=== PATIENT | female | born 1950 ===

== ENCOUNTER 2018-05-04 11:22 | Outpatient (CLI) | payer OTHER ==
[~2018-05-04] VITALS: Ht 152.4 cm; Wt 54.4 kg
== END 2018-05-04 14:28 | disposition home or self-care (01) ==
LOC: OFIC 805 11:22
DX: H90.6 Mixed conductive and sensorineural hearing loss, bilateral (principal); H72.13 Attic perforation of tympanic membrane, bilateral; J31.0 Chronic rhinitis; H69.83 Other specified disorders of Eustachian tube, bilateral

== ENCOUNTER 2018-08-17 10:16 | Outpatient (CLI) | payer OTHER ==
[~2018-08-17] VITALS: Ht 152.4 cm; Wt 54.4 kg
== END 2018-08-17 10:30 | disposition home or self-care (01) ==
LOC: OFIC 805 10:16
DX: H90.6 Mixed conductive and sensorineural hearing loss, bilateral (principal); H72.10 Attic perforation of tympanic membrane, unspecified ear; J31.0 Chronic rhinitis; H69.83 Other specified disorders of Eustachian tube, bilateral

== ENCOUNTER 2019-03-08 11:42 | Outpatient (CLI) | payer OTHER ==
[~2019-03-08] VITALS: Ht 152.4 cm; Wt 54.4 kg
== END 2019-03-08 15:21 | disposition home or self-care (01) ==
LOC: OFIC 805 11:42
DX: H90.6 Mixed conductive and sensorineural hearing loss, bilateral (principal); H72.13 Attic perforation of tympanic membrane, bilateral; J31.0 Chronic rhinitis; H69.83 Other specified disorders of Eustachian tube, bilateral

== ENCOUNTER 2019-05-10 11:10 | Outpatient (CLI) | payer OTHER ==
[~2019-05-10] VITALS: Ht 152.4 cm; Wt 54.4 kg
== END 2019-05-10 12:25 | disposition home or self-care (01) ==
LOC: OFIC 805 11:10
DX: H90.6 Mixed conductive and sensorineural hearing loss, bilateral (principal); H72.13 Attic perforation of tympanic membrane, bilateral; H66.23 Chronic atticoantral suppurative otitis media, bilateral; J31.0 Chronic rhinitis; H69.83 Other specified disorders of Eustachian tube, bilateral